=== PATIENT | male | born 1980 | race Caucasian/White ===

== ENCOUNTER → 2021-01-05 10:37 | Outpatient (BNVA) | payer BC, SELFPAY | PROVIDERS: PCP Internal Medicine; Visit Provider Physician Assistant ==

== ENCOUNTER 2021-02-09 11:12 | Outpatient (REF) | payer BC, SELFPAY ==
[2021-02-09 14:03] LABS: Basophils Percent Auto 0.6 % (0-2); Eosinophils Absolute Auto 0.1 X10*3/uL (0.0-0.4); Eosinophils Percent Auto 1.6 % (0-4); Imm Gran Abs Auto 0.02 X10*3/uL (0.00-0.03); Imm Gran Pct Auto 0.3 % (0.0-0.4); Lymphocytes Absolute Auto 2.2 X10*3/uL (1.2-4.9); Lymphocytes Percent Auto 35.1 % (20-40); MANUAL DIFF FLAG SCAN; Mean Corpuscular Volume 94.3 fL (80-98); Mean Platelet Volume 12.3 fL (9.4-12.4); Monocytes Absolute Auto 0.4 X10*3/uL (0.1-1.2); Monocytes Percent Auto 6.3 % (2-11); Neutrophils Absolute Auto 3.5 X10*3/uL (2.0-8.3); Neutrophils Percent Auto 56.1 % (45-73); Platelet Count 104 X10*3/uL (160-400); Red Blood Count 4.24 X10*6/uL (4.60-5.80); Red Cell Distribution Width 13.6 % (11.0-16.0); SCAN SMEAR FLAG 1; White Blood Count 6.2 X10*3/uL (4.8-10.8)
[2021-02-09 14:04] LABS: Hemoglobin 13.4 g/dl (14.0-18.0)
[2021-02-09 14:05] LABS: Mean Corpuscular HGB Conc 33.5 g/dl (31.0-36.0); Mean Corpuscular Hemoglobin 31.6 pg (27.0-33.0)
[2021-02-09 15:06] LABS: SLIDE REVIEW VERIFIED
[2021-02-09 18:10] LABS: Alanine Aminotransferase 107 U/L (0-40); Albumin Level 4.1 g/dL (3.5-5.0); Alkaline Phosphatase 340 U/L (39-117); Anion Gap 21 (12-20); Aspartate Amino Transferase 167 U/L (5-37); Bilirubin Total 2.5 mg/dL (0.0-1.0); Blood Urea Nitrogen 8 mg/dL (9-16); Calcium 9.2 mg/dL (8.4-10.2); Carbon Dioxide 25 mmol/L (22-29); Chloride 90 mmol/L (96-108); Estimated Glomerular Filt Rate > 60; Glucose Random 106 mg/dL (60-115); Sodium 132 mmol/L (135-145); Total Protein 7.1 g/dL (6.5-8.0)
== END 2021-02-09 11:13 | disposition home or self-care (01) ==
LOC: HO.LAB 11:12
PROVIDERS: PCP Internal Medicine; Visit Provider Physician Assistant
DX: K21.9 Gastro-esophageal reflux disease without esophagitis (principal); R11.2 Nausea with vomiting, unspecified; R74.01 Elevation of levels of liver transaminase levels; R10.11 Right upper quadrant pain; G47.30 Sleep apnea, unspecified
CPT/HCPCS: 36415; 80053; 85025

== ENCOUNTER 2024-02-26 14:09 | Outpatient (AMB) | payer BC, SELFPAY ==
[2024-02-26 14:13] VITALS: BP 160/92; PULSE 80; O2SAT 99; BMI 24.1
--- NOTE | 2024-02-26 14:13 | A.OFFPC_ITS ---
Vital Signs 02/26/24 14:13 Height 6 ft 5 in Weight 203 lb BMI 24.1 BP 160/92 H Blood Pressure Location Lt brachial Position Sitting Pulse 80 Pulse Source Pulse Oximeter Pulse Oximetry (%) 99 Oxygen Delivery Method Room Air Intake Visit Reasons: follow up Receiving Inspector Required: No Engineer Process: Not Required per policy Accompanied by: Self / Same As Patient Allergies penicillin V Allergy (Unknown, Verified 02/26/24 14:14) Unknown Medication List - Last Reconciled 02/27/24 by Juan Toscano MD omeprazole 20 mg PO BID 90 days Tobacco use date assessed: 02/26/24 Dental Screening Dental Screen Date: 02/26/24 Did you have a dental visit in the last 12 months?: Yes Did you have a dental problem in the last 6 months where you did not have access to dental care?: No Was dental information given to patient?: Patient has dentist HPI follow up HPI Details GERD on Rx; compliant; doing well [facility] Medical History (Updated 03/28/23 @ 11:15 by Juan Toscano MD) Sleep apnea, unspecified Chronic GERD Surgical History No significant past surgical history Family History (Updated 02/26/24 @ 14:17 by SAVANNAH Slater) Father HTN (hypertension) Mother No problems noted. Social History Household Members: Spouse Housing: House Alcohol intake: current Alcohol intake frequency: 0-2 drinks per day Alcohol type: beer Patient Tobacco Use Status: Current everyday Tobacco user Cigarettes Per Day: 6 e-Cigarette/Vaping Use: Never Used Substance Use Type: Marijuana Current occupational status: employed Cognitive needs: No Hearing needs: No Vision needs: No Questionnaire PHQ-9 Over the last 2 weeks, how often have you been bothered by any of the following problems? 1. Little interest or pleasure in doing things: not at all 2. Feeling down, depressed, or hopeless: not at all 3. Trouble falling or staying asleep, or sleeping too much: not at all 4. Feeling tired or having little energy: not at all 5. Poor appetite or overeating: not at all 6. Feeling bad about yourself - or that you are a failure or have let yourself or your family down: not at all 7. Trouble concentrating on things, such as reading the newspaper or watching television: not at all 8. Moving or speaking so slowly that other people could have noticed. Or the opposite - being so fidgety or restless that you have been moving around a lot more than usual: not at all 9. Thoughts that you would be better off or of hurting yourself in some way: not at all Total score: 0 Depression Screening Done: Yes 64741 - PHQ-9 Billing: Yes Source: Developed by Drs. Patrick Leach, eRena Martinez, Joselo Hernandez and colleagues, with an educational nas from [employer]. Thrive Questionnaire Date Thrive assessed: 02/26/24 I am a: Patient What is your living situation today?: I have a steady place to live Within the past 12 months, did the food you bought not last and you didn't have the money to get more?: Never true Within the past 12 months, did you worry whether your food would run out before you got money to buy more?: Never true Do you have trouble paying for medicines?: No Do you have trouble getting transportation to medical appointments?: No Do you have trouble paying your heating and electricity bill?: No Do you have trouble taking care of your child, family member or friend?: No Do you have trouble with day-to-day activities such as bathing, preparing meals, shopping, managing finances, etc.?: No Are you currently unemployed and looking for a job?: No Are you interested in more education?: No Please select the resources that you would like help with: None THRIVE Score: 0 AUDIT C Alcohol Use Questionnaire (AUDIT-C) 1. How often do you have a drink containing alcohol?: Monthly or less 2. How many drinks containing alcohol do you have on a typical day when you are drinking?: 1 or 2 3. How often do you have six or more drinks on one occasion?: Never Total Score: 1 VIJAYA-7 AMB Questionnaire VIJAYA-7 Date VIJAYA - 7 assessed: 02/26/24 Feeling nervous, anxious, or on edge: 0 = Not at all Not being able to stop or control worryin = Not at all Worrying too much about different things: 0 = Not at all Trouble relaxin = Not at all Being so restless that it is hard to sit still: 0 = Not at all Becoming easily annoyed or irritable: 0 = Not at all Feeling afraid as if something awful might happen: 0 = Not at all Total VIJAYA-7 score (0-4 normal; 5-9 mild; 10-14 moderate; 15-21 severe): 0 Source: Developed by Drs. Patrick Leach, Reena Martinez, Joselo Hernandez and colleagues, with an educational nas from [employer]. VIJAYA-7 Assessment Billing VIJAYA-7 Assessment Tool: VIJAYA-7 Assessment 01058 Review of Systems Const Denies chills, Denies headache(s) and Denies weight loss ENT Denies headache(s) Card Denies chest pain, Denies syncope, Denies irregular heart rhythm and Denies dyspnea Resp Denies chest congestion, Denies cough and Denies dyspnea GI Denies abdominal pain, Denies change in stool character, Denies nausea and Denies vomiting Musc Denies deformity and Denies joint swelling Neuro Denies syncope and Denies headache(s) Physical exam (Primary Care) Vital Signs: Last Vital Signs Pulse 80 02/26/24 14:13 BP 160/92 H 02/26/24 14:13 Pulse Ox 99 02/26/24 14:13 Oxygen Delivery Method Room Air 02/26/24 14:13 BMI result Body Mass Index 24.1 Tobacco/Smoking Status: Tobacco use Status Tobacco use date assessed 02/26/24 02/26/24 14:15 Patient Tobacco Use Status Current everyday Tobacco 02/26/24 14:15 e-Cigarette/Vaping Use Never Used 02/26/24 14:15 PHQ-9: PHQ-9 Score PHQ-9: Total score 0 02/26/24 14:15 Thrive Assessment: Date of Thrive Assessment Date Thrive assessed 02/26/24 02/26/24 14:15 Const General: cooperative, comfortable, no acute distress and alert Neck Neck: Yes no lymphadenopathy Thyroid: Thyroid normal Resp Effort & Inspection: normal respiratory effort Auscultation: clear to auscultation bilaterally Percussion: percussion normal Cardio Jugular venous distension: no JVD Palpation: normal PMI Rate: regular rate Rhythm: regular rhythm Heart sounds: S1 normal heart sound present and S2 normal heart sound present GI Inspection: Yes normal to inspection Palpation (GI): No hepatosplenomegaly present Skin General skin exam: no rashes or lesions noted Extrem General: Yes no clubbing, cyanosis or edema Assessment and Plan Assessment & Plan (1) Chronic GERD: Code(s): K21.9 - Gastro-esophageal reflux disease without esophagitis Plan: stable; same rx Orders: Orders Lipid Panel Today Z13.220 - Encounter for screening for lipoid disorders Thyroid Stimulating Hormone Today Z13.29 - Encounter for screening for other suspected endocrine disorder Complete Blood Count Auto Diff Today Z13.0 - Encounter for screening for diseases of the blood and blood-forming organs and certain disorders involving the immune mechanism Comprehensive [place]. Panel Fast Today Z13.9 - Encounter for screening, un specified Coding Level of Care Code Est Pt Level 3 (07117) Diagnoses Chronic GERD K21.9 Additional Codes VIJAYA-7 Assessment Billing - VIJAYA-7 Assessment Tool: VIJAYA-7 Assessment 46036 ([id number])
== END 2024-02-26 14:29 | disposition home or self-care (01) ==
PROVIDERS: PCP Internal Medicine; Visit Provider Internal Medicine
DX: K21.9 Gastro-esophageal reflux disease without esophagitis (principal)
CPT/HCPCS: 99213

== ENCOUNTER 2024-09-02 13:26 | Outpatient (AMB) | payer BC, SELFPAY ==
--- NOTE | 2024-09-02 13:29 | A.OFFPC_ITS ---
Vital Signs 09/02/24 13:31 09/02/24 13:34 Height 6 ft 5 in Weight 203 lb 4 oz BMI 24.1 BP 170/100 H 180/120 H Blood Pressure Location Lt brachial Lt brachial Position Sitting Sitting Pulse 95 Pulse Source Pulse Oximeter Pulse Oximetry (%) 99 Oxygen Delivery Method Room Air Intake Visit Reasons: f\u Intake Note: Patient is here to follow up on GERD. Licensed Psychiatric Technician Required: No Basket Sorter: Not Required per policy Accompanied by: Self / Same As Patient Allergies penicillin V Allergy (Unknown, Verified 09/02/24 13:30) Unknown Tobacco use date assessed: 09/02/24 Dental Screening Dental Screen Date: 02/26/24 HPI f\u HPI Details gerd on rx; compliant [facility] Medical History (Updated 03/28/23 @ 11:15 by Juan Toscano MD) Sleep apnea, unspecified Chronic GERD Surgical History No significant past surgical history Family History Father HTN (hypertension) Mother No problems noted. Social History Household Members: Spouse Housing: House Alcohol intake: current Alcohol intake frequency: 0-2 drinks per day Alcohol type: beer Patient Tobacco Use Status: Current someday Tobacco user Tobacco use type: Cigarette Cigarette Packs Per Day: 0.5 Cigarettes Per Day: 6 e-Cigarette/Vaping Use: Never Used Second Hand Smoke Exposure: Yes Substance Use Type: Marijuana service: No Current occupational status: employed Cognitive needs: No Hearing needs: No Vision needs: No Questionnaire PHQ-9 Over the last 2 weeks, how often have you been bothered by any of the following problems? 1. Little interest or pleasure in doing things: not at all 2. Feeling down, depressed, or hopeless: not at all 3. Trouble falling or staying asleep, or sleeping too much: not at all 4. Feeling tired or having little energy: not at all 5. Poor appetite or overeating: not at all 6. Feeling bad about yourself - or that you are a failure or have let yourself or your family down: not at all 7. Trouble concentrating on things, such as reading the newspaper or watching television: not at all 8. Moving or speaking so slowly that other people could have noticed. Or the opposite - being so fidgety or restless that you have been moving around a lot more than usual: not at all 9. Thoughts that you would be better off or of hurting yourself in some way: not at all Total score: 0 Depression Screening Interpretation: Negative Depression Screening Done: Yes Source: Developed by Drs. Patrick Leach, Reena Martinez, Joselo Hernandez and colleagues, with an educational nas from [employer]. Thrive Questionnaire Date Thrive assessed: 09/02/24 I am a: Patient What is your living situation today?: I have a steady place to live Within the past 12 months, did the food you bought not last and you didn't have the money to get more?: Never true Within the past 12 months, did you worry whether your food would run out before you got money to buy more?: Never true Do you have trouble paying for medicines?: No Do you have trouble getting transportation to medical appointments?: No Do you have trouble paying your heating and electricity bill?: No Do you have trouble taking care of your child, family member or friend?: No Do you have trouble with day-to-day activities such as bathing, preparing meals, shopping, managing finances, etc.?: No Are you currently unemployed and looking for a job?: No Are you interested in more education?: No Please select the resources that you would like help with: None Currently or been in a relationship where the following occur: No concerns reported THRIVE Score: 0 AUDIT C Alcohol Use Questionnaire (AUDIT-C) 1. How often do you have a drink containing alcohol?: 2-3 times a week 2. How many drinks containing alcohol do you have on a typical day when you are drinking?: 5 or 6 3. How often do you have six or more drinks on one occasion?: Weekly Total Score: 8 VIJAYA-7 AMB Questionnaire VIJAYA-7 Date VIJAYA - 7 assessed: 09/02/24 Feeling nervous, anxious, or on edge: 0 = Not at all Not being able to stop or control worryin = Not at all Worrying too much about different things: 0 = Not at all Trouble relaxin = Not at all Being so restless that it is hard to sit still: 0 = Not at all Becoming easily annoyed or irritable: 0 = Not at all Feeling afraid as if something awful might happen: 0 = Not at all Total VIJAYA-7 score (0-4 normal; 5-9 mild; 10-14 moderate; 15-21 severe): 0 Source: Developed by Drs. Patrick Leach, Reena Martinez, Joselo Hernandez and colleagues, with an educational nas from [employer]. Review of Systems Const Denies chills, Denies headache(s) and Denies weight loss ENT Denies headache(s) Card Denies chest pain, Denies syncope, Denies irregular heart rhythm and Denies dyspnea Resp Denies chest congestion, Denies cough and Denies dyspnea GI Denies abdominal pain, Denies change in stool character, Denies nausea and Denies vomiting Musc Denies deformity and Denies joint swelling Neuro Denies syncope and Denies headache(s) Physical exam (Primary Care) Vital Signs: Last Vital Signs Pulse 95 09/02/24 13:31 BP 180/120 H 09/02/24 13:34 Pulse Ox 99 09/02/24 13:31 Oxygen Delivery Method Room Air 09/02/24 13:31 BMI result Body Mass Index 24.1 Tobacco/Smoking Status: Tobacco use Status Tobacco use date assessed 09/02/24 09/02/24 13:34 Patient Tobacco Use Status Current someday Tobacco 09/02/24 13:34 Tobacco use type Cigarette 09/02/24 13:34 e-Cigarette/Vaping Use Never Used 09/02/24 13:30 PHQ-9: PHQ-9 Score PHQ-9: Total score 0 09/02/24 13:30 Depression Screening Interpretation: Negative Thrive Assessment: Date of Thrive Assessment Date Thrive assessed 09/02/24 09/02/24 13:30 Currently or been in a relationship where the following occur: No concerns reported Const General: cooperative, comfortable, no acute distress and alert Neck Neck: Yes no lymphadenopathy Thyroid: Thyroid normal Resp Effort & Inspection: normal respiratory effort Auscultation: clear to auscultation bilaterally Percussion: percussion normal Cardio Jugular venous distension: no JVD Palpation: normal PMI Rate: regular rate Rhythm: regular rhythm Heart sounds: S1 normal heart sound present and S2 normal heart sound present GI Inspection: Yes normal to inspection Palpation (GI): No hepatosplenomegaly present Skin General skin exam: no rashes or lesions noted Extrem General: Yes no clubbing, cyanosis or edema Coding Level of Care Code Est Pt Level 3 (48699) Diagnoses Chronic GERD K21.9 Assessment & Plan Assessment & Plan (1) Chronic GERD: Code(s): K21.9 - Gastro-esophageal reflux disease without esophagitis Category: Medical Plan: same rx Orders: Orders Thyroid Stimulating Hormone Today Z13.29 - Encounter for screening for other suspected endocrine disorder Complete Blood Count Auto Diff Today Z13.0 - Encounter for screening for diseases of the blood and blood-forming organs and certain disorders involving the immune mechanism Comprehensive [place]. Panel Fast Today Z13.9 - Encounter for screening, unspecified Lipid Panel Today Z13.220 - Encounter for screening for lipoid disorders Referrals Dermatology Referral R22.9 - Localized swelling, mass and lump, unspecified Medications: Refilled omeprazole 20 mg PO BID 90 days 180 caps 3RF
[2024-09-02 13:31] VITALS: BP 170/100; PULSE 95; O2SAT 99; BMI 24.1
[2024-09-02 13:34] VITALS: BP 180/120
== END 2024-09-02 13:48 | disposition home or self-care (01) ==
LOC: HO.HMCH 13:27
PROVIDERS: PCP Internal Medicine; Visit Provider Internal Medicine
DX: K21.9 Gastro-esophageal reflux disease without esophagitis (principal)

== ENCOUNTER → 2024-09-02 13:26 | Outpatient (BNVA) | payer BC, SELFPAY | PROVIDERS: PCP Internal Medicine; Visit Provider Internal Medicine ==

== ENCOUNTER 2025-09-02 13:22 | Outpatient (AMB) | payer BC, SELFPAY ==
--- NOTE | 2025-09-02 13:26 | MHC.PC.OV ---
Vital Signs 09/02/25 13:28 Height 6 ft 5 in Weight 193 lb 4 oz BMI 22.9 BP 190/98 H Blood Pressure Location Lt brachial Position Sitting Respiration 18 Pulse 107 H Pulse Source Pulse Oximeter Temp 97.1 F Temp Source Temporal Artery Scan Pulse Oximetry (%) 99 Oxygen Delivery Method Room Air Intake Visit Reasons: [facility] from [facility] [employer] Required: No Accompanied by: Self / Same As Patient Allergies Seasonal Allergies Allergy (Mild, Verified 09/02/25 13:40) Unknown penicillin V Allergy (Unknown, Verified 09/02/25 13:40) Unknown Medication List - Last Reconciled 09/02/25 by JACQUELINE Gtz omeprazole 20 mg PO BID 90 days Tobacco use date assessed: 09/02/25 Dental Screening Dental Screen Date: 09/02/25 Did you have a dental visit in the last 12 months?: Yes Did you have a dental problem in the last 6 months where you did not have access to dental care?: No Was dental information given to patient?: Patient has dentist HPI [facility] from [facility] HPI Details The patient is a 45-year-old male presenting for transition of care from Dr. Toscano, who retired and follow-up and management of chronic conditions. The patient has a history of elevated blood pressure, which he acknowledges has been consistently high. He reports feeling nervous when his blood pressure is taken, suggesting a component of white coat hypertension. There is a family history of hypertension, as his father has been on medication for it for a long time. He also has a diagnosis of sleep apnea and has been using a CPAP for 5-6 years, which his reports is effective. He is not currently followed by a sleep medicine specialist for his CPAP settings and has been purchasing replacement masks [id number] due to insurance coverage issues. Regarding his gastroesophageal reflux disease (GERD), the patient takes omeprazole twice daily. He reports that certain foods, such as chicken parm, exacerbate his symptoms, while dietary changes like eating apples and grapes have been helpful. He confirms taking his morning dose of omeprazole on an empty stomach before eating or drinking anything other than water. His last lab work was in 2020, which revealed elevated liver enzymes. He admits to being a drinker and has been advised to be careful with his liver. The same labs from 2020 also showed low red blood cells and hemoglobin, suggesting anemia, which may be related to alcohol use affecting B12 and folate absorption. The patient has not had any abdominal imaging done previously. [facility] Medical History Sleep apnea, unspecified Chronic GERD Surgical History No significant past surgical history Family History Father HTN (hypertension) Mother No problems noted. Social History Household Members: Spouse Housing: House Alcohol intake: current Alcohol intake frequency: 0-2 drinks per day Alcohol type: beer Patient Tobacco Use Status: Current someday Tobacco user Tobacco use type: Cigarette Cigarette Packs Per Day: 0.5 Cigarettes Per Day: 6 e-Cigarette/Vaping Use: Never Used Second Hand Smoke Exposure: Yes Substance Use Type: Marijuana service: No Current occupational status: employed Cognitive needs: No Hearing needs: No Vision needs: No Questionnaire PHQ-9 Over the last 2 weeks, how often have you been bothered by any of the following problems? 1. Little interest or pleasure in doing things: not at all 2. Feeling down, depressed, or hopeless: not at all 3. Trouble falling or staying asleep, or sleeping too much: not at all 4. Feeling tired or having little energy: not at all 5. Poor appetite or overeating: not at all 6. Feeling bad about yourself - or that you are a failure or have let yourself or your family down: not at all 7. Trouble concentrating on things, such as reading the newspaper or watching television: not at all 8. Moving or speaking so slowly that other people could have noticed. Or the opposite - being so fidgety or restless that you have been moving around a lot more than usual: not at all 9. Thoughts that you would be better off or of hurting yourself in some way: not at all Total score: 0 Depression Screening Interpretation: Negative Depression Screening Done: Yes 46304 - PHQ-9 Billing: Yes Source: Developed by Drs. Patrick Leach, Reena B.Joselo Lewis and colleagues, with an educational nas from [employer]. Thrive Questionnaire Date Thrive assessed: 08/31/25 I am a: Patient What is your living situation today?: I have a steady place to live Within the past 12 months, did the food you bought not last and you didn't have the money to get more?: Never true Within the past 12 months, did you worry whether your food would run out before you got money to buy more?: Never true Do you have trouble paying for medicines?: No Do you have trouble getting transportation to medical appointments?: No Do you have trouble paying your heating and electricity bill?: No Do you have trouble taking care of your child, family member or friend?: No Do you have trouble with day-to-day activities such as bathing, preparing meals, shopping, managing finances, etc.?: No Are you currently unemployed and looking for a job?: No Are you interested in more education?: No Please select the resources that you would like help with: None Currently or been in a relationship where the following occur: No concerns reported THRIVE Score: 0 AUDIT C Alcohol Use Questionnaire (AUDIT-C) 1. How often do you have a drink containing alcohol?: 4 or more times a week 2. How many drinks containing alcohol do you have on a typical day when you are drinking?: 5 or 6 3. How often do you have six or more drinks on one occasion?: Daily or almost daily Total Score: 10 VIJAYA-7 AMB Questionnaire VIJAYA-7 Date VIJAYA - 7 assessed: 09/02/24 Feeling nervous, anxious, or on edge: 0 = Not at all Not being able to stop or control worryin = Not at all Worrying too much about different things: 0 = Not at all Trouble relaxin = Not at all Being so restless that it is hard to sit still: 0 = Not at all Becoming easily annoyed or irritable: 0 = Not at all Feeling afraid as if something awful might happen: 0 = Not at all Total VIJAYA-7 score (0-4 normal; 5-9 mild; 10-14 moderate; 15-21 severe): 0 Source: Developed by Drs. Patrick Leach, Joselo Mckeon and colleagues, with an educational nas from [employer]. VIJAYA-7 Assessment Billing VIJAYA-7 Assessment Tool: VIJAYA-7 Assessment 13471 Review of Systems Const Denies headache(s) Eyes Denies loss of vision ENT Denies vertigo, Denies dizziness, Denies headache(s) and Denies sore throat Card Denies chest pain, Denies leg edema and Denies lightheadedness Resp Denies cough, Denies hemoptysis and Denies wheezing GI Denies abdominal pain, Denies melena, Denies constipation, Reports heartburn (occasional if he forgets to take the medication), Denies diarrhea, Reports nausea (rare only if the heartburn is severe) and Reports vomiting (rare only if the heartburn is severe) Denies dysuria, Denies urinary frequency and Denies urinary urgency Musc Denies arthralgias, Denies joint swelling, Denies numbness and Denies tingling Neuro Denies Abnormal speech present, Denies behavioral changes, Denies vertigo, Denies dizziness, Denies headache(s), Denies loss of vision, Denies memory loss, Denies numbness and Denies tingling Psych Denies anxiety, Denies behavioral changes, Denies depression, Denies memory loss and Denies panic attacks Ant/Lymph Denies easy bleeding and Denies easy bruising Aller/Immun Denies wheezing Physical exam (Primary Care) Vital Signs: Last Vital Signs Temp 97.1 F 09/02/25 13:28 Pulse 107 H 09/02/25 13:28 Resp 18 09/02/25 13:28 BP 190/98 H 09/02/25 13:28 Pulse Ox 99 09/02/25 13:28 Oxygen Delivery Method Room Air 09/02/25 13:28 BMI result Body Mass Index 22.9 Tobacco/Smoking Status: Tobacco use Status Tobacco use date assessed 09/02/25 09/02/25 13:37 Patient Tobacco Use Status Current someday Tobacco 09/02/25 13:37 Tobacco use type Cigarette 09/02/25 13:37 e-Cigarette/Vaping Use Never Used 09/02/25 13:37 PHQ-9: PHQ-9 Score PHQ-9: Total score 0 09/02/25 13:55 Depression Screening Interpretation: Negative Thrive Assessment: Date of Thrive Assessment Date Thrive assessed 08/31/25 09/02/25 13:37 Currently or been in a relationship where the following occur: No concerns reported Const General: healthy appearing, no acute distress, alert and awake Nutritional Appearance: well nourished Orientation/consciousness: oriented to person, oriented to place and oriented to time HENMT Ears: TM's normal bilaterally General nose exam: Normal nasal mucous membranes and turbinates present Eyes Conjunctivae: conjunctivae normal Sclerae: sclerae normal Pupils: Equal, round and reactive pupils present Neck Neck: Yes no lymphadenopathy and Yes no JVD Thyroid: Thyroid normal Carotids: no bruits Resp Effort & Inspection: normal respiratory effort and not tachypneic Auscultation: no crackles, no rales, no rhonchi and no wheezes Cardio Rate: regular rate Rhythm: regular rhythm Heart sounds: no murmurs and normal S1 and S2 GI Palpation (GI): Soft to palpation, nontender, no hepatomegaly and no splenomegaly Auscultation: normal bowel sounds General: Yes no CVA tenderness Back/Spine/Pelvis Back: no CVA tenderness Skin General skin exam: no rashes or lesions noted and dry skin Neuro General: oriented to person, oriented to place and oriented to time Cranial nerves: Yes Equal, round and reactive pupils present Speech: No Abnormal speech present Gait exam (Neuro): Normal gait present Motor exam (neuro): no tremor noted Extrem Right upper extremity: full ROM Left upper extremity: full ROM Right lower extremity: full ROM; no edema Left lower extremity: full ROM; no edema Psych Mental Status: mental status grossly normal Speech and movement: Normal speech and movement present Affect: normal affect Attitude: cooperative Thought process: Normal thought process present Coding Level of Care Code Est Pt Level 4 (95469) Diagnoses Elevated blood-pressure reading without diagnosis of hypertension R03.0 Chronic GERD K21.9 Nausea and vomiting, unspecified vomiting type R11.2 Vomiting type: unspecified Anemia, unspecified type D64.9 Anemia type: unspecified type Sleep apnea, unspecified type G47.30 Sleep apnea type: unspecified type Elevated liver enzymes R74.8 Additional Codes PHQ-9 - 82125 - PHQ-9 Billing: Yes ([id number]) VIJAYA-7 Assessment Billing - VIJAYA-7 Assessment Tool: VIJAYA-7 Assessment 37767 ([id number]) Time Spent (min) 41 Assessment & Plan Assessment & Plan (1) Elevated blood-pressure reading without diagnosis of hypertension: Code(s): R03.0 - Elevated blood-pressure reading, without diagnosis of hypertension Category: Medical Plan: The patient's blood pressure remains elevated, and there is a family history of hypertension. He also notes anxiety during medical visits, which may contribute. To manage this, a small dose of lisinopril will be initiated. The patient is advised to purchase a home blood pressure cuff to monitor his readings at home in a relaxed state and report them via the patient portal. A nurse visit is scheduled in four weeks for a follow-up blood pressure check. (2) Chronic GERD: Code(s): K21.9 - Gastro-esophageal reflux disease without esophagitis Category: Medical Plan: The patient manages his GERD with omeprazole twice daily and dietary modifications. He demonstrates correct usage by taking it on an empty stomach. He will continue his current regimen. (3) Nausea and vomiting: Comment: Avoid culprits-decrease etoh- cannabis? Increase [id number] bid, add carafate 1gm bid- EGD - Importance of follows Code(s): R11.2 - Nausea with vomiting, unspecified Category: Medical Qualifiers: Vomiting type: unspecified Qualified Code(s): R11.2 - Nausea with vomiting, unspecified Plan: Reports that this is not frequent in his only when his heartburns are severe. Explained to the patient that this could be related to his drinking as well and he should cut down. (4) Anemia: Code(s): D64.9 - Anemia, unspecified Category: Medical Qualifiers: Anemia type: unspecified type Qualified Code(s): D64.9 - Anemia, unspecified Plan: We will check CBC along with B12 and folate and advise (5) Sleep apnea, unspecified: Comment: Cpap-f/u w/ pcp Code(s): G47.30 - Sleep apnea, unspecified Category: Medical Qualifiers: Sleep apnea type: unspecified type Qualified Code(s): G47.30 - Sleep apnea, unspecified Plan: The patient is diagnosed with sleep apnea and uses a CPAP machine, which he finds effective. As uncontrolled sleep apnea can contribute to hypertension, a referral will be placed to a sleep medicine specialist to ensure his CPAP settings are still appropriate. (6) Elevated liver enzymes: Code(s): R74.8 - Abnormal levels of other serum enzymes Category: Medical Plan: Lab work from 2020 showed elevated liver enzymes and anemia, potentially related to the patient's admitted to frequent alcohol consumption. The patient has been counseled on the importance of reducing alcohol intake to prevent progression to cirrhosis. An abdominal ultrasound of the liver will be ordered to assess its condition. New lab work, including B12 and folate levels, will be ordered to re-evaluate his liver function and anemia. Orders: Orders Complete Blood Count Auto Diff 09/02/25 D64.9 - Anemia, unspecified, G47.30 - Sleep apnea, unspecified, K21.9 - Gastro-esophageal reflux disease without esophagitis, R74.8 - Abnormal levels of other serum enzymes Lipid Panel 09/02/25 D64.9 - Anemia, unspecified, G47.30 - Sleep apnea, unspecified, K21.9 - Gastro-esophageal reflux disease without esophagitis, R74.8 - Abnormal levels of other serum enzymes Vitamin D 25-OH Total 09/02/25 D64.9 - Anemia, unspecified, G47.30 - Sleep apnea, unspecified, K21.9 - Gastro-esophageal reflux disease without esophagitis, R74.8 - Abnormal levels of other serum enzymes Liver Fibrosis Pnl 09/02/25 R74.8 - Abnormal levels of other serum enzymes US abdomen zamudio w elastography 09/02/25 R74.8 - Abnormal levels of other serum enzymes Comprehensive [place]. Panel Fast 09/02/25 D64.9 - Anemia, unspecified, G47.30 - Sleep apnea, unspecified, K21.9 - Gastro-esophageal reflux disease without esophagitis, R74.8 - Abnormal levels of other serum enzymes UA CC w/rflx Micro + Cult 09/02/25 D64.9 - Anemia, unspecified, G47.30 - Sleep apnea, unspecified, K21.9 - Gastro-esophageal reflux disease without esophagitis, R74.8 - Abnormal levels of other serum enzymes TSH reflex Free T4 09/02/25 D64.9 - Anemia, unspecified, G47.30 - Sleep apnea, unspecified, K21.9 - Gastro-esophageal reflux disease without esophagitis, R74.8 - Abnormal levels of other serum enzymes Vitamin B12 and Folate 09/02/25 D64.9 - Anemia, unspecified, G47.30 - Sleep apnea, unspecified, K21.9 - Gastro-esophageal reflux disease without esophagitis, R74.8 - Abnormal levels of other serum enzymes Referrals Sleep Medicine Referral G47.30 - Sleep apnea, unspecified Medications: New lisinopril 5 mg PO DAILY 30 tabs 3RF
[2025-09-02 13:28] VITALS: BP 190/98; PULSE 107; RESP 18; TEMP 36.2; O2SAT 99; BMI 22.9
== END 2025-09-02 14:14 | disposition home or self-care (01) ==
LOC: HO.HMCH 13:23
DX: R03.0 Elevated blood-pressure reading, without diagnosis of hypertension (principal); K21.9 Gastro-esophageal reflux disease without esophagitis; R11.2 Nausea with vomiting, unspecified; D64.9 Anemia, unspecified; G47.30 Sleep apnea, unspecified; R74.8 Abnormal levels of other serum enzymes

== ENCOUNTER → 2025-09-02 13:22 | Outpatient (BNVA) | payer BC, SELFPAY | PROVIDERS: PCP Internal Medicine | DX: R03.0 Elevated blood-pressure reading, without diagnosis of hypertension (principal); K21.9 Gastro-esophageal reflux disease without esophagitis; R11.2 Nausea with vomiting, unspecified; G47.30 Sleep apnea, unspecified; R74.8 Abnormal levels of other serum enzymes; D64.9 Anemia, unspecified; Z99.89 Dependence on other enabling machines and devices | CPT/HCPCS: 96127 ==

== ENCOUNTER 2025-09-09 06:22 | Outpatient (REF) | payer BC, SELFPAY ==
[2025-09-09 06:39] LABS: MANUAL DIFF FLAG NO
[2025-09-09 07:20] LABS: Hematocrit 39.0 % (42.0-52.0); Hemoglobin 13.5 g/dl (14.0-18.0); Imm Gran Abs Auto 0.06 X10*3/uL (0.00-0.03); Imm Gran Pct Auto 0.8 % (0.0-0.4); Lymphocytes Absolute Auto 2.5 X10*3/uL (1.2-4.9); Mean Corpuscular HGB Conc 34.6 g/dl (31.0-36.0); Mean Corpuscular Hemoglobin 31.6 pg (27.0-33.0); Mean Corpuscular Volume 91.3 fL (80.0-98.0); NRBC Abs Auto 0.000 X10*3/uL (0.0-0.012); NRBC Pct Auto 0.0 /100WBC (0.0-0.2); Platelet Count 277 X10*3/uL (160-400); Red Blood Count 4.27 X10*6/uL (4.60-5.80); White Blood Count 7.4 X10*3/uL (4.8-10.8)
[2025-09-09 07:43] LABS: Anion Gap 12 (12-20); Blood Urea Nitrogen 8 mg/dL (9-16); Carbon Dioxide 25 mmol/L (22-29); Chloride 103 mmol/L (96-108); Potassium 3.9 mmol/L (3.3-5.1); Sodium 136 mmol/L (135-145)
[2025-09-09 07:44] LABS: Alanine Aminotransferase 52 U/L (0-40); Albumin Level 4.7 g/dL (3.5-5.0); Alkaline Phosphatase 99 U/L (39-117); Aspartate Amino Transferase 47 U/L (5-37); Calcium 9.0 mg/dL (8.4-10.2); Cholesterol 222 mg/dL (<200); Estimated Glomerular Filt Rate > 60; HDL Cholesterol 70 mg/dL (>40); Total Protein 7.0 g/dL (6.5-8.0); Triglycerides 166 mg/dL (<150)
[2025-09-09 08:13] LABS: Appearance Urine Clear; Glucose Urine UA Negative (Negative); PH 6.0 (5.0-9.0); Specific Gravity - Urine 1.015 (1.005-1.025)
[2025-09-09 08:15] LABS: Folate 12.9 ng/mL (> or = 4.0); Vitamin B12 353 pg/mL (200-900)
[2025-09-17 18:29] LABS: FIB-ALT 39 U/L (9-46); FIB-Alpha-2-Macroglobulin 119 mg/dL (106-279); FIB-Apolipoprotein A1 212 mg/dL (94-176); FIB-GGT 281 U/L (3-95); FIB-Haptoglobin 293 mg/dL (43-212); FIB-Total Bilirubin 0.7 mg/dL (0.2-1.2); Liver Fibrosis Score 0.08; Liver Fibrosis Stage F0; Nec Inflam Act Grade A0; Nec Inflam Act Score 0.16
== END 2025-09-09 06:23 | disposition home or self-care (01) ==
LOC: HO.LAB 06:22
DX: K21.9 Gastro-esophageal reflux disease without esophagitis (principal); R74.8 Abnormal levels of other serum enzymes; G47.30 Sleep apnea, unspecified; D64.9 Anemia, unspecified
CPT/HCPCS: 36415; 80053; 80061; 81003; 81596; 82306; 82607; 82746; 84443; 85025

== ENCOUNTER 2025-10-23 08:28 | Outpatient (AMB) | payer BC, SELFPAY ==
[2025-10-23 08:31] VITALS: BP 172/92; PULSE 91; RESP 18; O2SAT 100; BMI 22.7
--- NOTE | 2025-10-23 08:31 | A.OFFPC_ITS ---
Vital Signs 10/23/25 08:31 Height 6 ft 5 in Weight 191 lb 8 oz BMI 22.7 BP 172/92 H Blood Pressure Location Lt brachial Position Sitting Respiration 18 Pulse 91 Pulse Source Pulse Oximeter Temp Source Temporal Artery Scan Pulse Oximetry (%) 100 Oxygen Delivery Method Room Air Intake Visit Reasons: Annual Exam Virtual Assistant Required: No Accompanied by: Self / Same As Patient Allergies Seasonal Allergies Allergy (Mild, Verified 10/23/25 08:48) Unknown penicillin V Allergy (Unknown, Verified 10/23/25 08:48) Unknown Medication List - Last Reconciled 10/23/25 by JACQUELINE Gtz lisinopril 5 mg PO DAILY omeprazole 20 mg PO BID 90 days Tobacco use date assessed: 10/23/25 Dental Screening Dental Screen Date: 10/23/25 Did you have a dental visit in the last 12 months?: No Did you have a dental problem in the last 6 months where you did not have access to dental care?: No Was dental information given to patient?: No HPI Annual Exam HPI Details Dentist: up to date Eye: over year ago Snellen: Right: Left: Corrected vision: STI screening: Colonoscopy: colonoscopy Pap Smer: PHQ-9: Flu: given office today COVID: x4 Tdap: given in office Diet:regular diet Exercise:working, rowing machine History of Present Illness The patient is a 45 year old male presenting for follow-up for chronic conditions and review of laboratory results. The patient has a history of hypertension, with blood pressure readings noted to be persistently high. He reports a family history of high blood pressure in his father and sister. He typically measures his blood pressure at home in the afternoon after consuming coffee. Regarding his health maintenance, the patient's mother had colorectal cancer at age 99, and he reports occasional blood in his stool. He has not had a prior colonoscopy. He has not had a dental exam within the past year but has an appointment scheduled. His last eye exam was over a year ago for difficulty seeing while driving, and he felt the prescribed glasses were ineffective. His social history is notable for attempting to exercise more with a rowing machine at home. He is making efforts to change his diet by cooking at home more often. Health Maintenance A referral for a screening colonoscopy will be placed due to occasional hematochezia. The patient will receive an influenza vaccine and a tetanus vaccine, if due, during the visit. He was advised to proceed with his scheduled dental exam and to seek a new provider for his vision concerns. A physical exam for next year will also be scheduled. Social History - Diet: Reports a regular diet and has b een trying to cook more at home. - Caffeine: Drinks one medium or large c offee in the morning. - Exercise: Reports trying to exercise m ore in the morning using a rowing machine. - Occupation: Patient's work involves co [employer] use. Results - Complete Blood Count (CBC): Reveals mi ld anemia, though not critically low. - Comprehensive Metabolic Panel (CMP): E lectrolytes have improved, kidney function is good, and glucose is normal. - Liver enzymes have significantly decre ased from 167 to 47. - Lipid Panel: Triglycerides are slightl y elevated at 166 mg/dL, LDL is 119 mg/dL, and HDL is 70 mg/dL. - Vitamin Levels: Vitamin B12 is on the lower end of the normal range, and vitamin D is low (below the goal of 30). - Thyroid function: Normal. - Urinalysis: Normal. - Liver fibrosis markers: Indicate some inflammation. - Imaging: [facility]waiting [facility]. [facility] Medical History Sleep apnea, unspecified Chronic GERD Surgical History No significant past surgical history Family History Father HTN (hypertension) Mother No problems noted. Social History Household Members: Spouse Housing: House Alcohol intake: current Alcohol intake frequency: 0-2 drinks per day Alcohol type: beer Patient Tobacco Use Status: Current someday Tobacco user Tobacco use type: Cigarette Cigarette Packs Per Day: 0.5 Cigarettes Per Day: 6 e-Cigarette/Vaping Use: Never Used Second Hand Smoke Exposure: Yes Substance Use Type: Marijuana service: No Current occupational status: employed Cognitive needs: No Hearing needs: No Vision needs: No Questionnaire PHQ-9 Over the last 2 weeks, how often have you been bothered by any of the following problems? Depression Screening Interpretation: Negative Depression Screening Done: Yes Source: Developed by Drs. Patrick Leach, Joselo Mckeon and colleagues, with an educational nas from [employer]. Thrive Questionnaire Date Thrive assessed: 10/23/25 I am a: Patient What is your living situation today?: I have a steady place to live Within the past 12 months, did the food you bought not last and you didn't have the money to get more?: Never true Within the past 12 months, did you worry whether your food would run out before you got money to buy more?: Never true Do you have trouble paying for medicines?: No Do you have trouble getting transportation to medical appointments?: No Do you have trouble paying your heating and electricity bill?: No Do you have trouble taking care of your child, family member or friend?: No Do you have trouble with day-to-day activities such as bathing, preparing meals, shopping, managing finances, etc.?: No Are you currently unemployed and looking for a job?: No Are you interested in more education?: No Currently or been in a relationship where the following occur: No concerns reported THRIVE Score: 0 VIJAYA-7 AMB Questionnaire VIJAYA-7 Date VIJAYA - 7 assessed: 09/02/24 Source: Developed by Drs. Patrick Leach, Joselo Mckeon and colleagues, with an educational nas from [employer]. Review of Systems Narrative Review of Systems - Cardiovascular: Denies shortness of breath, chest pain, and heart palpitations. - Gastrointestinal: Reports occasional blood in stool. - Denies other stomach issues. - HEENT: Reports difficulty with vision while driving. - Denies clogging sensation in ears. - Allergic/Immunologic: Reports allergies to dogs. - Constitutional: Denies recent cold symptoms. Const Denies headache(s) Eyes Reports decreased night vision and Denies loss of vision ENT Denies vertigo, Denies dizziness, Denies headache(s) and Denies sore throat Card Denies chest pain, Denies leg edema and Denies lightheadedness Resp Denies cough, Denies hemoptysis and Denies wheezing GI Denies abdominal pain, Denies melena, Reports hematochezia (occasional ), Denies constipation, Reports heartburn (occasional if he forgets to take the medication), Denies diarrhea, Reports nausea (rare only if the heartburn is severe) and Reports vomiting (rare only if the heartburn is severe) Denies dysuria, Denies urinary frequency and Denies urinary urgency Musc Denies arthralgias, Denies joint swelling, Denies numbness and Denies tingling Skin/Breast Denies lesions and Denies rash Neuro Denies Abnormal speech present, Denies behavioral changes, Denies vertigo, Denies dizziness, Denies headache(s), Denies loss of vision, Denies memory loss, Denies numbness and Denies tingling Psych Denies anxiety, Denies behavioral changes, Denies depression, Denies memory loss and Denies panic attacks Ant/Lymph Denies easy bleeding and Denies easy bruising Aller/Immun Denies wheezing Physical exam (Primary Care) Vital Signs: Last Vital Signs Pulse 91 10/23/25 08:31 Resp 18 10/23/25 08:31 BP 172/92 H 10/23/25 08:31 Pulse Ox 100 10/23/25 08:31 Oxygen Delivery Method Room Air 10/23/25 08:31 BMI result Body Mass Index 22.7 Tobacco/Smoking Status: Tobacco use Status Tobacco use date assessed 10/23/25 10/23/25 08:36 Patient Tobacco Use Status Current someday Tobacco 10/23/25 08:36 Tobacco use type Cigarette 10/23/25 08:36 e-Cigarette/Vaping Use Never Used 10/23/25 08:36 Depression Screening Interpretation: Negative Thrive Assessment: Date of Thrive Assessment Date Thrive assessed 10/23/25 10/23/25 08:36 Currently or been in a relationship where the following occur: No concerns reported Narrative Physical Exam - Vitals: Blood pressure is elevated. - Cardiovascular: Auscultation of the heart was performed. - HEENT: Otoscopic examination of the ears was performed. Const General: healthy appearing, no acute distress, alert and awake Nutritional Appearance: well nourished Orientation/consciousness: oriented to person, oriented to place and oriented to time [facility] Ears: TM's normal bilaterally General nose exam: Normal nasal mucous membranes and turbinates present Eyes Conjunctivae: conjunctivae normal Sclerae: sclerae normal Pupils: Equal, round and reactive pupils present Neck Neck: Yes no lymphadenopathy and Yes no JVD Thyroid: Thyroid normal Carotids: no bruits Resp Effort & Inspection: normal respiratory effort and not tachypneic Auscultation: no crackles, no rales, no rhonchi and no wheezes Cardio Rate: regular rate Rhythm: regular rhythm Heart sounds: no murmurs and normal S1 and S2 GI Palpation (GI): Soft to palpation, nontender, no hepatomegaly and no splenomegaly Auscultation: normal bowel sounds General: Yes no CVA tenderness Back/Spine/Pelvis Back: no CVA tenderness Skin General skin exam: no rashes or lesions noted and dry skin Neuro General: oriented to person, oriented to place, oriented to time and CN's II-XI intact bilaterally Cranial nerves: Yes Equal, round and reactive pupils present and Yes Nystagmus not present Speech: No Abnormal speech present Gait exam (Neuro): Normal gait present Motor exam (neuro): no tremor noted Deep tendon reflexes (DTR's): Right triceps reflex intensity grade: 2+, Left triceps reflex intensity grade: 2+, Rt Biceps (C5, C6): 2+, Left biceps reflex intensity grade: 2+, Right brachioradialis reflex intensity grade: 2+, Left brac hioradialis reflex intensity grade: 2+, Right patellar reflex intensity grade: 2+ and Left patellar reflex intensity grade: 2+ Extrem Right upper extremity: full ROM Left upper extremity: full ROM Right lower extremity: full ROM; no edema Left lower extremity: full ROM; no edema Psych Mental Status: mental status grossly normal Speech and movement: Normal speech and movement present Affect: normal affect Attitude: cooperative Thought process: Normal thought process present Office Procedures Flu Questionnaire Does the patient have a severe egg allergy?: No Does the patient have severe life threatening allergies?: No Does the patient have a fever or illness today?: No Has the patient ever had Guillain-[place] Syndrome?: No Has the patient ever had any past reaction to a flu shot?: No Immunizations Fluarix [id number] (PF) 45 mcg (15 mcg x 3)/0.5 mL IM syringe Performing Provider: JACQUELINE Gtz [facility] Administered by: SAVANNAH More on 10/23/25 09:04 Dose Route Admin Location Dispensed Lot Number Expiration Date [facility] [employer] 0.5 mL IM Right Deltoid 0.5 mL [id number] 05/04/26 85080-847-07 [employer] VIS Given Date VIS Provided VIS Publication Date 10/23/25 Single Vaccine 24 Eligibility Eligibility Date Funding Source Not VFC Eligible 10/23/25 Private Tenivac (PF) 5 Lf unit-2 Lf unit/0.5 mL intramuscular syringe Performing Provider: JACQUELINE Gtz [facility] Administered by: SAVANNAH More on 10/23/25 09:04 Dose Route Admin Location Dispensed Lot Number Expiration Date [employer] 0.5 mL IM Right Deltoid 0.5 mL [id number] 01/03/27 61232-344-74 [employer] Total Dispensed Waste 0.5 mL 0 % VIS Given Date VIS Provided VIS Publication Date 10/23/25 Single Vaccine 21 Eligibility Eligibility Date Funding Source Not VFC Eligible 10/23/25 Private Results Reviewed Results Reviewed: Laboratory Tests 09/09/25 09/09/25 06:27 06:38 WBC 7.4 RBC 4.27 L Hgb 13.5 L Hct 39.0 L MCV 91.3 MCH 31.6 MCHC 34.6 RDW 12.2 Plt Count 277 Sodium 136 Potassium 3.9 Chloride 103 Carbon Dioxide 25 Anion Gap 12 BUN 8 L Creatinine 0.75 Estimated GFR > 60 Fasting Glucose 106 H Calcium 9.0 Total Bilirubin 0.9 AST 47 H ALT 52 H Alkaline Phosphatase 99 Liver GGT 281 H Liver Total Bilirubin 0.7 Liver Apolipoprotein A1 212 H Liver Fibrosis ALT 39 Liver [id number] 119 Liver Haptoglobin 293 H Liver Fibrosis Score 0.08 Total Protein 7.0 Albumin 4.7 Triglycerides 166 H Cholesterol 222 H LDL Cholesterol, Calc 119 H HDL Cholesterol 70 Vitamin B12 353 25-OH Vitamin D Total 20.3 L Folate 12.9 TSH 2.75 Urine Color Dark Yellow Urine Appearance Clear Urine pH 6.0 Ur Specific Kirby 1.015 Urine Protein Negative Urine Glucose (UA) Negative Urine Ketones Negative Urine Blood Negative Urine Nitrite Negative Ur Leukocyte Esterase Negative Coding Level of Care Code Est Pt Prev Care 40-64y([id number]) Diagnoses Annual physical exam Z00.00 Chronic GERD K21.9 Nausea and vomiting, unspecified vomiting type R11.2 Vomiting type: unspecified Anemia, unspecified type D64.9 Anemia type: unspecified type Sleep apnea, unspecified type G47.30 Sleep apnea type: unspecified type Elevated liver enzymes R74.8 Hypertension, unspecified type I10 Hypertension type: unspecified Hyperlipidemia, unspecified hyperlipidemia type E78.5 Hyperlipidemia type: unspecified Vitamin D deficiency E55.9 Time Spent (min) 37 Assessment & Plan Assessment & Plan (1) Annual physical exam: Code(s): Z00.00 - Encounter for general adult medical examination without abnormal findin gs Category: Medical Plan: Preventative guidelines and recent labs reviewed with the patient. Patient have never had a colonoscopy. Reports on and off blood in his stool the attributed to hemorrhoids. We will send the patient for colonoscopy instead. (2) Chronic GERD: Code(s): K21.9 - Gastro-esophageal reflux disease without esophagitis Category: Medical Plan: Reinforced dietary restriction Continue omeprazole 20 mg daily We will continue to monitor (3) Nausea and vomiting: Comment: Avoid culprits-decrease etoh- cannabis? Increase [id number] bid, add carafate 1gm bid- EGD - Importance of follows Code(s): R11.2 - Nausea with vomiting, unspecified Category: Medical Qualifiers: Vomiting type: unspecified Qualified Code(s): R11.2 - Nausea with vomiting, unspecified Plan: Reports that this is not frequent but when he has heartburns they are severe. Explained to the patient that this could be related to his drinking as well and he should cut down. Since, the patient has been cutting down reports that he is doing much better. Continue omeprazole 20 mg bid. (4) Anemia: Code(s): D64.9 - Anemia, unspecified Category: Medical Qualifiers: Anemia type: unspecified type Qualified Code(s): D64.9 - Anemia, unspe cified Plan: Normochromic and normocytic anemia. B12 and folate was evaluated given the patient alcohol consumption. These results came back normal. We will add an iron panel with the patient next blood work to further evaluate. (5) Sleep apnea, unspecified: Comment: Cpap-f/u w/ pcp Code(s): G47.30 - Sleep apnea, unspecified Category: Medical Qualifiers: Sleep apnea type: unspecified type Qualified Code(s): G47.30 - Sleep apnea, unspecified Plan: The patient is diagnosed with sleep apnea and uses a CPAP machine, which he finds effective. As uncontrolled sleep apnea can contribute to hypertension, a referral will be placed to a sleep medicine specialist to ensure his CPAP settings are still appropriate. (6) Elevated liver enzymes: Code(s): R74.8 - Abnormal levels of other serum enzymes Category: Medical Plan: The patient's liver enzymes have shown significant improvement, which is a positive response to dietary changes. Although a liver fibrosis workup showed some inflammation, it was negative for fibrosis, a scheduled liver ultrasound in November will provide more information. The plan is to monitor the liver enzymes with repeat labs in three months. (7) HTN (hypertension): Code(s): I10 - Essential (primary) hypertension Category: Medical Qualifiers: Hypertension type: unspecified Qualified Code(s): I10 - Essential (primary) hypertension Plan: The patient's blood pressure remains elevated despite current treatment, which is concerning given his strong family history. The plan is to treat his hypertension more aggressively by increasing his lisinopril dose to 10 mg daily. He was advised that he can take two of his current 5 mg tablets until the supply runs out. Dietary modifications, including reducing salt intake, were recommended. A follow-up appointment is scheduled in four weeks to re-evaluate his blood pressure. (8) HLD (hyperlipidemia): Code(s): E78.5 - Hyperlipidemia, unspecified Category: Medical Qualifiers: Hyperlipidemia type: unspecified Qualified Code(s): E78.5 - Hyperlipidemia, unspecified Plan: Lab results show slightly elevated triglycerides and LDL cholesterol, but a cardioprotective HDL level. The plan is to continue with lifestyle modifications and recheck lipids in three months (9) Vitamin D deficiency: Code(s): E55.9 - Vitamin D deficiency, unspecified Category: Medical Plan: The patient's vitamin D level is low. It was recommended he start an kisj-erf-kndknfv vitamin D3 supplement of 2000 IU (50 mcg) daily, especially during the winter months Plan Plan Patient was informed and verbally consented to the use of an ambient scribe for clinic note documentation during this visit. 1. Essential Hypertension The patient's blood pressure remains elevated despite current treatment, which is concerning given his strong family history. The plan is to treat his hypertension more aggressively by increasing his lisinopril dose to 10 mg daily. He was advised that he can take two of his current 5 mg tablets until the supply runs out. Dietary modifications, including reducing salt intake, were recommended. A follow-up appointment is scheduled in four weeks to re-evaluate his blood pressure. 2. Elevated Liver Transaminases The patient's liver enzymes have shown significant improvement, which is a positive response to dietary changes. Although a liver fibrosis workup showed some inflammation, a scheduled liver ultrasound in November will provide more information. The plan is to monitor the liver enzymes with repeat labs in three months. 3. Mixed Hyperlipidemia Lab results show slightly elevated triglycerides and LDL cholesterol, but a cardioprotective HDL level. The plan is to continue with lifestyle modifications and recheck lipids in three months. 4. Vitamin D Deficiency The patient's vitamin D level is low. It was recommended he start an ckck-iry-bpytppo vitamin D3 supplement of 2000 IU (50 mcg) daily, especially during the winter months. 5. Anemia The patient has a mild, non-critical anemia. Will add an iron panel to next blood work to further evaluate. The patient was also encouraged to start vitamin B12 1000mcg daily, levels were low normal. Labs will be repeated in three months to monitor this. Discussion Notes I reviewed the lab results with the patient, highlighting the significant improvement in his liver enzymes as a positive outcome of his diet changes. I explained we are awaiting a liver ultrasound in November for further evaluation. We discussed his hypertension, and given his persistently high readings and strong family history, I recommended a more aggressive treatment approach. I will be increasing his lisinopril dose to 10 mg and will re-evaluate his blood pressure in four weeks. I also emphasized the importance of reducing dietary salt. I recommended a screening colonoscopy due to his report of occasional hematochezia. I also discussed his low vitamin D and borderline low B12, recommending pgye-xuj-dgwlpsa supplementation for both. The plan is for him to receive his flu and tetanus shots today, follow up on his pending dental and vision care, and return in four weeks for a blood pressure recheck, with repeat labs in three months. Patient Instructions - Take lisinopril 10 mg by mouth once daily for your blood pressure. - You can take two of your current 5 mg pills until they run out. - Reduce the amount of salt in your diet to help lower your blood pressure. - Take an mwql-ayq-ycovmhm Vitamin D3 2000 IU (50 mcg) supplement once daily. - Take an qota-fzu-yqoeuuf Vitamin B12 1000 mcg supplement once daily. - You will receive a flu vaccine and a tetanus vaccine during your visit today. - A referral has been sent for a colonoscopy. - Be sure to keep your scheduled dental appointment. - Consider finding a new eye doctor for your vision problems. - Please return to the clinic in 4 weeks for a blood pressure check. - You will need to get new lab work done in 3 months. Orders: Orders Influenza [id number] Immunization 10/23/25 Z23 - Encounter for immunization Complete Blood Count Auto Diff 3 Months D64.9 - Anemia, unspecified, E78.5 - Hyperlipidemia, unspecified, G47.30 - Sleep apnea, unspecified, R74.8 - Abnormal levels of other serum enzymes TSH reflex Free T4 3 Months D64.9 - Anemia, unspecified, E78.5 - Hyperlipidemia, unspecified, G47.30 - Sleep apnea, unspecified, R74.8 - Abnormal levels of other serum enzymes Hemoglobin A1c 3 Months D64.9 - Anemia, unspecified, E78.5 - Hyperlipidemia, unspecified, G47.30 - Sleep apnea, unspecified, R74.8 - Abnormal levels of other serum enzymes Td Immunization 10/23/25 Z23 - Encounter for immunization Hepatitis A,B,C Profile 3 Months R74.8 - Abnormal levels of other serum enzymes Comprehensive Goessel. Panel Fast 3 Months D64.9 - Anemia, unspecified, E78.5 - Hyperlipidemia, unspecified, G47.30 - Sleep apnea, unspecified, R74.8 - Abnormal levels of other serum enzymes UA CC w/rflx Micro + Cult 3 Months D64.9 - Anemia, unspecified, E78.5 - Hyperlipidemia, unspecified, G47.30 - Sleep apnea, unspecified, R74.8 - Abnormal levels of other serum enzymes Lipid Panel 3 Months D64.9 - Anemia, unspecified, E78.5 - Hyperlipidemia, unspecified, G47.30 - Sleep apnea, unspecified, R74.8 - Abnormal levels of other serum enzymes Vitamin D 25-OH Total 3 Months D64.9 - Anemia, unspecified, E78.5 - Hyperlipidemia, unspecified, G47.30 - Sleep apnea, unspecified, R74.8 - Abnormal levels of other serum enzymes Vitamin B12 and Folate 3 Months D64.9 - Anemia, unspecified, E78.5 - Hyperlipidemia, unspecified, G47.30 - Sleep apnea, unspecified, R74.8 - Abnormal levels of other serum enzymes Referrals Gastroenterology Referral R74.8 - Abnormal levels of other serum enzymes, Z12.11 - Encounter for screening for malignant neoplasm of colon, Z12.12 - Encounter for screening for malignant neoplasm of rectum Medications: New cholecalciferol (vitamin D3) 50 mcg PO DAILY 90 caps 3RF lisinopril 10 mg PO DAILY 30 tabs 3RF 30 days Discontinued lisinopril Discontinued Reason: Doctor's Order 5 mg PO DAILY 30 tabs 3RF
== END 2025-10-23 09:18 | disposition home or self-care (01) ==
LOC: HO.HMCH 08:29
DX: Z23 Encounter for immunization (principal)

== ENCOUNTER → 2025-10-23 08:28 | Outpatient (BNVA) | payer BC, SELFPAY | PROVIDERS: PCP Internal Medicine | DX: Z23 Encounter for immunization (principal) | CPT/HCPCS: 90471; 90472; 90656; 90714 ==